=== PATIENT | male | born 1995 | race Two or more races ===

== ENCOUNTER 2019-03-12 22:08 | Emergency (ER) | payer SELFPAY ==
[~2019-03-12] VITALS: Ht 182.9 cm; Wt 95.3 kg
--- NOTE | 2019-03-13 | NUR ---
PATIENT WALKED INTO ER C/O PENILE LAC AFTER HAVING INTERCOURSE.
[2019-03-13] MEDS ORDERED: NEOMY/BACITRA/POLYMYXIN B OINT UD PACKET TP ONE ×2 (00:29→00:30)
--- NOTE | 2019-03-13 00:44 | NUR ---
Patient discharged to home in stable conditon. Written and verbal after care instructions given. Patient verbalizes understanding of instructions. WALKED OUT OF ER WITH NO DISTRESS NOTED
== END 2019-03-13 00:45 | disposition home or self-care (01) ==
LOC: ER 22:11
DX: S30.812A Abrasion of penis, initial encounter (principal); X58.XXXA Exposure to other specified factors, initial encounter; Y93.89 Activity, other specified; Y92.89 Other specified places as the place of occurrence of the external cause; Y99.8 Other external cause status
CPT/HCPCS: A4663